=== PATIENT | male | born 1980 | race Caucasian/White ===

== ENCOUNTER 2018-06-09 19:57 | Emergency (ER) | payer MEDICAID ==
[2018-06-09] MEDS: PENICILLIN V POTASSIUM 500 MG TAB PO (20:59)
[2018-06-09] MEDS: NORCO 5/325MG TABLET (BULK FOR ED) PO (20:59)
== END 2018-06-09 21:03 | disposition home or self-care (01) ==
LOC: M ED 19:57
DX: K02.9 Dental caries, unspecified (principal); F17.200 Nicotine dependence, unspecified, uncomplicated
CPT/HCPCS: 99282

== ENCOUNTER 2018-11-08 23:46 | Emergency (ER) | payer MEDICAID, OTHER ==
[~2018-11-08] VITALS: Ht 177.8 cm; Wt 136.4 kg
[2018-11-08 23:46] VITALS: BP 137/80
[~2018-11-08 23:46] MED LIST: IBUP-1022 PO; MOTR200T44 PO; PENI500T PO
[2018-11-09] MEDS ORDERED: KETO10TAB PO (00:42)
[2018-11-09] MEDS ORDERED: AUGM875T28 PO (00:42)
[2018-11-09] MEDS ORDERED: LIDO1SOL7 PO (00:42)
[2018-11-09] MEDS ORDERED: AUGMENTIN 875 MG TAB PO ONE (00:45)
[2018-11-09] MEDS ORDERED: KETOROLAC TROMETHAMINE 10 MG TAB PO ONE (00:45)
[2018-11-09] MEDS ORDERED: LIDOCAINE VISCOUS 2% SOLN 15ML UDC SS ONE (00:45)
== END 2018-11-09 01:06 | disposition home or self-care (01) ==
LOC: M ED 23:46
DX: K04.7 Periapical abscess without sinus (principal); K02.9 Dental caries, unspecified

== ENCOUNTER 2019-09-27 00:01 | Emergency (ER) | payer OTHER ==
[~2019-09-27] VITALS: Ht 177.8 cm; Wt 136.4 kg
[~2019-09-27 00:01] MED LIST changes: +AUGM875T28 PO; +KETO10TAB PO; +LIDO1SOL8 PO
[2019-09-27 00:05] VITALS: BP 139/86
[2019-09-27] MEDS ORDERED: OLAN5TAB (00:07)
[2019-09-27] MEDS ORDERED: SERT-138 (00:07)
== END 2019-09-27 01:56 | disposition left against medical advice (07) ==
LOC: M ED 00:01
DX: Z53.21 Procedure and treatment not carried out due to patient leaving prior to being seen by health care provider (principal)

== ENCOUNTER 2019-12-14 18:23 | Emergency (ER) | payer OTHER ==
[~2019-12-14] VITALS: Ht 177.8 cm; Wt 141.8 kg
[~2019-12-14 18:23] MED LIST changes: -LIDO1SOL8 PO; +LIDO2SOL17 PO; +OLAN5TAB; +SERT-138 PO
[2019-12-14 18:24] VITALS: BP 138/83
[2019-12-14] MEDS ORDERED: AMOX875T (18:32)
[2019-12-14] MEDS ORDERED: IBUP80TA (18:32)
[2019-12-14] MEDS ORDERED: NORCO, ANEXSIA 5/325MG TABLET (HYDROcodone/ACETAMINOPHEN) PO ONE (18:45)
[2019-12-14] MEDS ORDERED: ACETAMINOPHEN TAB 650MG DOSE (2X325MG) PO ONE (18:45)
[2019-12-14] MEDS ORDERED: KETOROLAC 60 MG/2 ML VIAL (J1885) IM ONE (18:45)
[2019-12-14] MEDS ORDERED: KETO10TAB PO (19:41)
== END 2019-12-14 19:50 | disposition home or self-care (01) ==
LOC: M ED 18:23
DX: K08.89 Other specified disorders of teeth and supporting structures (principal); Z79.899 Other long term (current) drug therapy; F17.210 Nicotine dependence, cigarettes, uncomplicated
CPT/HCPCS: 96372; 99282; J1885

== ENCOUNTER 2019-12-16 10:42 | Emergency (ER) | payer OTHER ==
[~2019-12-16] VITALS: Ht 177.8 cm; Wt 138.3 kg
[~2019-12-16 10:42] MED LIST changes: +AMOX875T; +IBUP80TA
[2019-12-16 10:44] VITALS: BP 138/87
[2019-12-16] MEDS ORDERED: PRED20TA PO (11:03)
[2019-12-16] MEDS ORDERED: VALA1TAB5 PO (11:03)
== END 2019-12-16 11:17 | disposition home or self-care (01) ==
LOC: M ED 10:42
DX: B02.9 Zoster without complications (principal); F33.9 Major depressive disorder, recurrent, unspecified; F41.9 Anxiety disorder, unspecified; Z79.899 Other long term (current) drug therapy; F17.210 Nicotine dependence, cigarettes, uncomplicated

== ENCOUNTER 2020-08-20 16:26 | Emergency (ER) | payer OTHER ==
[~2020-08-20] VITALS: Ht 177.8 cm; Wt 137.8 kg
[~2020-08-20 16:26] MED LIST changes: +PRED20TA PO; +VALA1TAB5 PO
[2020-08-20 16:50] VITALS: BP 155/94
[2020-08-20] MEDS ORDERED: GI COCKTAIL 50ML BTL(HYOSCYAMINE/MAALOX/LIDOCAINE VISCOUS)(1:3:1) PO ONE (17:00)
[2020-08-20 17:32] LABS: BASO # 0.1 10^3/uL (0.0-0.2); BASO % 0.9 % (0.0-1.0); EOS # 0.2 10^3/uL (0.0-0.5); EOS % 2.4 % (0.0-3.0); HEMATOCRIT 45.8 % (42.0-52.0); HEMOGLOBIN 15.9 g/dl (13.5-17.5); LYMPH # 3.7 10^3/uL (1.5-5.0); LYMPH % 39.7 % (24.0-44.0); MEAN CORPUSCULAR HGB CONC 34.7 g/dl (32.0-36.5); MEAN CORPUSCULAR VOLUME 89.3 fl (80.0-96.0); MONO % 10.4 % (0.0-5.0); NEUTROPHILS # 4.3 10^3/uL (1.5-8.5); PLATELET COUNT, AUTOMATED 191 10^3/uL (150-450); RED BLOOD COUNT 5.13 10^6/uL (4.30-6.10); WHITE BLOOD COUNT 9.3 10^3/uL (4.0-10.0)
[2020-08-20] MEDS ORDERED: OMEP-218 PO (17:41)
[2020-08-20] MEDS ORDERED: MUPI2OI TOP (17:41)
[2020-08-20] MEDS ORDERED: MUPIROCIN 2% OINT 22 GM TUBE TOP ONE (17:45)
[2020-08-20 18:06] LABS: ALBUMIN 4.2 GM/DL (3.2-5.2); ALT/SGPT 60 U/L (12-78); BILIRUBIN,DIRECT 0.1 MG/DL (0.0-0.2); BILIRUBIN,TOTAL 0.2 MG/DL (0.2-1.0); BLOOD UREA NITROGEN 12 MG/DL (7-18); CALCIUM LEVEL 9.3 MG/DL (8.5-10.1); CARBON DIOXIDE LEVEL 27 MEQ/L (21-32); CHLORIDE LEVEL 105 MEQ/L (98-107); CK-MB VALUE MASS < 1.0 NG/ML (<3.6); CPK CREATINE PHOSPHOKINASE 105 U/L (39-308); CREATININE FOR GFR 0.91 MG/DL (0.70-1.30); GLOMERULAR FILTRATION RATE > 60.0 (>60); GLUCOSE, FASTING 95 MG/DL (70-100); LIPASE 106 U/L (73-393); MB/CK RELATIVE INDEX 0.95 (< OR =4); POTASSIUM SERUM 4.3 MEQ/L (3.5-5.1); SODIUM LEVEL 137 MEQ/L (136-145); TROPONIN I < 0.02 NG/ML (< 0.10)
--- NOTE | 2020-08-21 13:28 | ECGEPIP ---
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
== END 2020-08-20 17:53 | disposition home or self-care (01) ==
LOC: M ED 16:26
DX: R07.89 Other chest pain (principal); F41.9 Anxiety disorder, unspecified; Z79.899 Other long term (current) drug therapy; F17.210 Nicotine dependence, cigarettes, uncomplicated

== ENCOUNTER 2020-11-29 16:10 | Emergency (ER) | payer OTHER ==
[~2020-11-29] VITALS: Ht 182.9 cm; Wt 139.2 kg
[~2020-11-29 16:10] MED LIST changes: +MUPI2OI TOP; +OMEP-218 PO
[2020-11-29] MEDS ORDERED: ALBU8.5H (16:20)
[2020-11-29 17:03] VITALS: BP 130/86
--- NOTE | 2020-11-30 07:38 | ECGEPIP ---
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
== END 2020-11-29 16:57 | disposition left against medical advice (07) ==
LOC: M ED 16:10
DX: Z53.29 Procedure and treatment not carried out because of patient's decision for other reasons (principal)

== ENCOUNTER → 2025-08-22 | Outpatient (REF) | payer OTHER ==
[~2025-08-22] MED LIST changes: +ALBU8.5H; -IBUP-1022 PO; +IBUP600T42 PO; +LIDO15SO8 PO; -LIDO2SOL17 PO; +OLAN1TAB16; -OLAN5TAB; +OMEP-173 PO; -OMEP-218 PO; +ONDA-284
== END ==
LOC: M LAB REF 12:16
PROVIDERS: ATTEND Physician Assistant
DX: B34.9 Viral infection, unspecified (principal)

== ENCOUNTER 2025-08-24 08:48 | Emergency (ER) | payer OTHER ==
[~2025-08-24] VITALS: Ht 177.8 cm; Wt 141.6 kg
[~2025-08-24 08:48] MED LIST changes: -ONDA-284
[2025-08-24 08:50] VITALS: BP 145/83; TEMP 97.7; O2SAT 97
[2025-08-24] MEDS ORDERED: ONDA-284 (08:57)
[2025-08-24 09:58] LABS: BASO # 0.1 10^3/uL (0.0-0.2); BASO % 0.4 % (0.0-1.0); EOS # 0.3 10^3/uL (0.0-0.5); EOS % 1.6 % (0.0-3.0); LYMPH # 3.7 10^3/uL (1.5-5.0); LYMPH % 22.9 % (24.0-44.0); MONO # 1.7 10^3/uL (0.0-0.8); MONO % 10.5 % (2.0-8.0); NEUTROPHILS # 10.2 10^3/uL (1.5-8.5); NEUTROPHILS % 64.0 % (36.0-66.0); PLATELET COUNT, AUTOMATED 152 10^3/uL (150-450)
[2025-08-24 10:02] LABS: KETONE, URINE AUTO RFX NEGATIVE (NEGATIVE); LEUKOCYTE ESTERASE UR AUTO RFX NEGATIVE (NEGATIVE); MUCUS, URINE RFX SMALL (NEGATIVE); NITRITE, URINE AUTO RFX NEGATIVE (NEGATIVE); RBC, URINE AUTO RFX 6 /HPF (0-3); SQUAM EPITHELIAL CELL UR AURFX 0 /HPF (0-6); WBC, URINE AUTO RFX 2 /HPF (0-3)
[2025-08-24 10:27] LABS: ALT/SGPT 165 U/L (7.0-40); AST/SGOT 47 U/L (<34); CALCIUM LEVEL 8.4 MG/DL (8.5-10.1); CARBON DIOXIDE LEVEL 29 MMOL/L (20-31); CHLORIDE LEVEL 100 MMOL/L (98-107); CREATININE FOR GFR 0.72 MG/DL (0.70-1.30); GLOMERULAR FILTRATION RATE > 90.0 (>60); POTASSIUM SERUM 3.7 MMOL/L (3.5-5.1); SODIUM LEVEL 136 MMOL/L (136-145)
[2025-08-24] MEDS ORDERED: NS (Normal Saline) 0.9% 1,000 ML IV SCH (12:20)
== END 2025-08-24 12:32 | disposition left against medical advice (07) ==
LOC: M ED 08:48
DX: R10.9 Unspecified abdominal pain (principal); F41.9 Anxiety disorder, unspecified; F17.210 Nicotine dependence, cigarettes, uncomplicated; Z79.899 Other long term (current) drug therapy; Z53.9 Procedure and treatment not carried out, unspecified reason

== ENCOUNTER 2025-08-26 14:45 | Emergency (ER) | payer OTHER ==
[~2025-08-26] VITALS: Ht 177.8 cm; Wt 136.8 kg
[~2025-08-26 14:45] MED LIST changes: +ONDA-284
[2025-08-26 14:46] VITALS: BP 163/91; TEMP 97.1; O2SAT 98
== END 2025-08-26 15:00 | disposition left against medical advice (07) ==
LOC: M ED 14:58
DX: Z53.21 Procedure and treatment not carried out due to patient leaving prior to being seen by health care provider (principal)